=== PATIENT | female | born 1985 | race African-American/Black ===

== ENCOUNTER 2022-10-11 08:33 | Emergency (ER) | payer SELFPAY ==
[~2022-10-11] VITALS: Ht 165.1 cm; Wt 59.0 kg
[2022-10-11] MEDS ORDERED: DIPHENHYDRAMINE 50MG/ML VIAL IM STA (09:14)
[2022-10-11] MEDS ORDERED: LORAZEPAM 2MG/ML CPJ IV ONE (09:15)
[2022-10-11] MEDS ORDERED: SODIUM CHLORIDE 0.9% 1,000 ML IV ONE (09:15)
[2022-10-11] MEDS ORDERED: LORAZEPAM 2MG/ML CPJ IM ONE (09:15)
[2022-10-11] MEDS ORDERED: LEVETIRACETAM 500MG PREMIX 100 ML IV ONE (09:30)
[2022-10-11 09:59] LABS: CHLORIDE 104 mEq/L (98-107)
[2022-10-11 10:04] LABS: BASOPHILS % 0.1 % (0.0-2.0); EOSINOPHILS % 0.2 % (0.0-5.0); HEMATOCRIT. 43.9 % (36.0-48.0); HEMOGLOBIN. 14.5 g/dL (12.0-16.0); LYMPHOCYTES % 11.5 % (20.0-50.0); MEAN CORPUSCULAR HEMOGLOBIN 28.9 pg (28.0-32.0); MEAN CORPUSCULAR VOLUME 87.2 fL (81.0-99.0); MEAN PLATELET VOLUME 8.3 fl (7.4-10.4); MONOCYTES % 6.7 % (2.0-8.0); NEUTROPHILS % 81.5 % (40.0-76.0); PLATELET 315 x1000/uL (130-400); RED BLOOD CELL COUNT 5.03 mill/uL (4.2-5.4); RED CELL DISTRIBUTION WIDTH 13.8 % (11.6-14.6)
[2022-10-11 10:09] LABS: ETHANOL BLOOD < 10 mg/dL
[2022-10-11 10:52] LABS: HCG SCREEN NEGATIVE
[2022-10-11] MEDS ORDERED: ONDANSETRON HCL 4MG/2ML INJ IV ONE (11:30)
[2022-10-11] MEDS ORDERED: ONDANSETRON HCL 4MG/2ML INJ IV NR (11:30)
[2022-10-11 13:31] LABS: CLARITY URINE TURBID (CLEAR); COLOR URINE YELLOW (YELLOW); KETONES URINE 2+ (NEGATIVE); LEUKOCYTE ESTERASE URINE NEGATIVE (NEGATIVE); NITRITE URINE NEGATIVE (NEGATIVE); OCCULT BLOOD URINE NEGATIVE (NEGATIVE); PH URINE 8.5 (4.5-8.0); PROTEIN URINE NEGATIVE (NEGATIVE); SPECIFIC GRAVITY URINE 1.021 (1.005-1.030); UROBILINOGEN URINE 0.2 E.U./dL (0.2-1.0)
[2022-10-11 14:26] LABS: *AMPHETAMINES SCREEN URINE NEGATIVE (NEGATIVE); *BARBITURATES SCREEN URINE NEGATIVE (NEGATIVE); *BENZODIAZEPINES SCREEN URINE NEGATIVE (NEGATIVE); *COCAINE SCREEN URINE NEGATIVE (NEGATIVE); METHADONE URINE SCREEN NEGATIVE (NEGATIVE); OPIATES URINE SCREEN NEGATIVE (NEGATIVE); PHENCYCLIDINE URINE SCREEN NEGATIVE (NEGATIVE)
[2022-10-11 14:28] LABS: CANNABINOID URINE SCREEN PRESUMTIVE POSITIVE (NEGATIVE)
[2022-10-11 17:00] VITALS: BP 131/70
== END 2022-10-12 00:58 | disposition home or self-care (01) ==
LOC: ER 08:47
DX: R56.9 Unspecified convulsions (principal); R45.6 Violent behavior
CPT/HCPCS: 36415; 70450; 71045; 80053; 80305; 80307; 80320; 80329; 81003; 84484; 84703; 85025; 93005; 96365; 96366; 96372; 96375; 99285; J1200; J1953; J2060; J2405; J7030; Z7610; G0480